=== PATIENT | female | born 1950 | race Caucasian/White ===

== ENCOUNTER 2018-06-14 10:57 | Outpatient (REF) | payer BC, SELFPAY ==
--- NOTE | 2018-06-14 09:24 | PAPFT_PTH ---
PATIENT: Joya Manrique LOC: [facility] U#:[id number] AGE/SX: 68/F ROOM: RE06/14/[address]: Asad Xie : 1950 BED: DIS: 06/14/2018 SPEC #: [id number] RECD: 06/14/18 12:53 STATUS: VISHNU REQ #: [id number] ASHER: 06/14/18 09:[address]: Asad Xie DEPT: [facility] Cytology RECD BY: Dorinda De La Vega Tissues: 1 - CX/ENDOCX FOR PAP SMEARS Procedures: PAP THIN PREP/UVM Screening HPV DNA PROBE Comments: [id number]
== END 2018-06-14 11:17 ==
LOC: NCHCN 10:57
PROVIDERS: PCP Family Medicine; Visit Provider Family Medicine
DX: Z12.4 Encounter for screening for malignant neoplasm of cervix (principal); Z11.51 Encounter for screening for human papillomavirus (HPV)
CPT/HCPCS: 88142; 87624

== ENCOUNTER 2018-06-27 00:34 | Outpatient (CLI) | payer BC, SELFPAY ==
--- NOTE | 2018-06-27 16:22 | DI.MAMMO_ITS ---
SYMPTOM/DIAGNOSIS: SCREENING, Z12.39 MAMMOGRAMS: Mammograms were interpreted according to the usual protocol including computer analysis with CAD system, tomosynthesis and C view imaging. Comparison is made with [id number]. The breasts are composed of heterogeneously dense fibroglandular tissue, breast density, Category C. No suspicious masses or suspicious microcalcifications are seen. There has been no significant change. IMPRESSION: Category 1C, negative mammogram. Yearly screening mammography is recommended. [facility] ASSESSMENT OF FINDINGS: Negative. Category 1. Patient will receive a letter notifying them of these results. Bi-RADS category C. The breasts are heterogeneously dense, which may obscure small masses.
== END 2018-06-27 00:54 ==
PROVIDERS: PCP Family Medicine; Visit Provider Family Medicine
DX: Z12.31 Encounter for screening mammogram for malignant neoplasm of breast (principal)
CPT/HCPCS: 77063; 77067

== ENCOUNTER 2018-08-15 15:28 | Outpatient (REF) | payer BC, SELFPAY ==
--- NOTE | 2018-08-15 | ENDO_PTH ---
PATIENT: Joya Manrique LOC: [facility] U#:[id number] AGE/SX: 68/F ROOM: RE08/15/[address]: Florecita Linares : 1950 BED: DIS: 08/15/2018 SPEC #: [id number] RECD: 08/15/18 18:07 STATUS: VISHNU REPatricia #: [id number] ASHER: 08/15/18 00:[address]: Florecita Linares DEPT: Surgical Specimen RECD BY: Dorinda De La Vega ENTERED: 08/15/18 18:08 SP TYPE: Endo OTHR DR: Asad Xie Tissues: 1 - ENDOCERVICAL BX/CURRETTE Procedures: GROSS AND MICRO LEVEL 4 Comments: [id number]
== END 2018-08-15 15:48 ==
LOC: LBN 15:28
PROVIDERS: PCP Family Medicine; Visit Provider Obstetrics & Gynecology Gynecology
DX: N87.9 Dysplasia of cervix uteri, unspecified (principal); B97.7 Papillomavirus as the cause of diseases classified elsewhere
CPT/HCPCS: 88305

== ENCOUNTER 2019-02-18 10:01 | Emergency (ER) | payer MEDICARE, BC, SELFPAY ==
[2019-02-18 10:03] VITALS: BP 161/74; PULSE 89; RESP 16; TEMP 36.4; O2SAT 100
[2019-02-18 10:27] LABS: Bilirubin Negative (Negative); Blood Moderate (Negative); Clarity Sl Cloudy (Clear); Glucose Negative (Negative); Ketones Negative (Negative); Leukocyte Esterase Moderate (Negative); Nitrite Negative (Negative); Specific Gravity <= 1.005 (1.005-1.025); Urobilinogen 0.2 EU/dL (Up TO 0.2)
[2019-02-18 10:37] LABS: Bacteria Few HPF (Negative); C & S Indicated? Yes; Casts Negative LPF (Negative); Crystals Negative HPF (Negative); Epithelial Cells Rare HPF (Negative); Mucus Negative (Negative); RBC 20-50 (0-2); WBC 20-50 HPF (0-5)
--- NOTE | 2019-02-18 11:11 | ED.GENADUL_ITS ---
Discharge Plan Disposition Patient Disposition: HOME Condition: Stable Discharge Details Chief Complaint: Urinary Clinical Impression: Acute UTI Primary Care Provider: Asad Xie ED Provider: Elmer Perez Home Meds and New Rx's Prescriptions: Continued ascorbic acid (vitamin C) 1,000 mg tablet extended release 1,000 mg PO Q12H RF: 0 selenium 200 mcg tablet 200 mcg PO DAILY RF: 0 cyanocobalamin (vitamin B-12) [Vitamin B-12] 2,000 mcg tablet extended release 2,000 mcg PO DAILY RF: 0 cranberry 400 MG capsule 0 cap PO DIRECTED RF: 0 omeprazole 20 MG capsule,delayed release(DR/EC) 20 mg PO DAILY RF: 0 naproxen 500 MG tablet 500 mg PO BID PRN PRNRF: 0 acidophilus-pectin, citrus [Acidophilus Probiotic] 1 EACH capsule 0 cap PO DIRECTED RF: 0 Discharge Instructions Instructions: Urinary Tract Infection in Women (ED) Additional Instructions: Please continue to stay well-hydrated and take antibiotics as prescribed and until fully completed. Return to the emergency department for new or worsening symptoms otherwise follow-up with your primary care provider as needed for reassessment Referrals: Asad Xie [Primary Care Provider] - Discharge Data Discharge Date/Time-TO BE ENTERED AT DEPARTURE: 02/18/19 11:26 Medical Decision Making Patient presenting to the emergency department for chief complaint of urinary tract infection symptoms. She states that this started this morning when she awoke. She states that she typically gets urinary tract infections after antibiotics and she states that she finished a 2-week course of doxycycline 3 to 4 days ago and then noticed symptoms today which is typical for her. She has been taking probiotics which seemed to help but has not taken them for the last couple days which she also feels is attributed to her UTI symptoms. Patient denies nausea vomiting fever chills flank pain or any other associated symptoms. Physical exam is unremarkable and shows no CVA tenderness, patient is nontoxic afebrile non-hypotensive alert and oriented and no worrisome findings on physical exam. Given this I feel patient is appropriate for outpatient antibiotic therapy and given that symptoms started today and no history of renal dysfunction patient placed upon Macrobid. Return precautions discussed. After discussion of diagnosis and plan of care patient has no further needs, questions, or concerns and states clear understanding to return to the emergency department for any worsening symptoms. Lab Data Lab results reviewed: Yes I reviewed the patient's lab results. HPI General Mode of arrival: ambulatory . Date/Time Provider Initiated Documentation: 02/18/19 11:06 . Limitations to Documentation: no limitations . Information obtained by: patient and RN notes reviewed . History of Present Illness 68 year old F presents to the emergency department with the chief complaint of UTI symptoms, described as mild and similar to prior episodes, with intensity rated at 5. Quality is described as aching, and is localized to the abdomen (Suprapubic). Patient started experiencing this hour(s) (3) No relieving factors improve symptom(s), Patient notes no other symptoms.. Patient did receive the following treatments prior to arrival, none Related Data Home Medications Medication Instructions Recorded Confirmed acidophilus-pectin, citrus 0 cap PO DIRECTED 06/07/13 02/18/19 [Acidophilus Probiotic] cranberry 0 cap PO DIRECTED 06/07/13 02/18/19 naproxen 500 mg PO BID PRN PRN 06/07/13 02/18/19 omeprazole 20 mg PO DAILY 06/07/13 02/18/19 ascorbic acid (vitamin C) 1,000 mg 1,000 mg PO Q12H 08/15/18 02/18/19 tablet,extended release cyanocobalamin (vitamin B-12) 2,000 mcg PO DAILY 08/15/18 02/18/19 2,000 mcg tablet,extended release selenium 200 mcg tablet 200 mcg PO DAILY 08/15/18 02/18/19 Allergies Allergy/AdvReac Type Severity Reaction Status Date / Time alendronate sodium AdvReac Intermediate N/V Unverified 02/18/19 10:07 [From Fosamax] Sulfa (Sulfonamide AdvReac Unverified 02/18/19 10:07 Antibiotics) General Stated Complaint: Urinary ANASTASIA: 4 Review of Systems Constitutional Denies body ache(s), Denies chills, Denies fever(s) and Denies malaise Cardiovascular Reports system reviewed and no additional complaints, except as docu Respiratory Reports system reviewed and no additional complaints, except as docu Gastrointestinal Denies abdominal pain, Denies nausea and Denies vomiting Genitourinary Reports as per HPI, Reports urinary frequency, Reports dysuria and Reports urinary urgency PFSH Medical History Cystocele (Resolved) GERD (gastroesophageal reflux disease) Hematuria History of tobacco use Prolapse of female genital organs Surgical History Biopsy of breast (~1995) Ligation of fallopian tube (~1982) Social History Smoking/Tobacco Use Status: Never Alcohol Intake: current Alcohol Intake frequency: 0-2 drinks per day Alcohol type: wine Drug use: Never Do you feel safe at home: Yes Do you feel safe in your relationship?: Yes Female Reproductive History Menstrual Menopause type: natural History History 2 Para Hx # Term Pregnancies 2 Multiple births Hx # Pregnancies Ectopic pregnancies AB induced Hx Number of Living Children AB spontaneous Exam Const General: cooperative and no acute distress Orientation: alert, awake and oriented x3 Resp Effort & Inspection: normal respiratory effort and able to speak in complete sentences Auscultation: clear to auscultation bilaterally Cardio Rate: regular rate Rhythm: regular rhythm Heart Sounds: S1 normal and S2 normal GI Palpation: nontender Back/Spine/Pelvis Back: no CVA tenderness Neuro General: alert, awake and oriented x3 Extrem General: normal capillary refill Course Vital Signs Temperature 36.4 C L 02/18/19 10:03 Pulse 89 02/18/19 10:03 Respiratory Rate 16 02/18/19 10:03 Blood Pressure 161/74 H 02/18/19 10:03 Pulse Oximetry 100 02/18/19 10:03 Temperature 36.4 C L 02/18/19 10:03 Temperature Source Skin 02/18/19 10:03 Pulse 89 02/18/19 10:03 Respiratory Rate 16 02/18/19 10:03 Respiratory Effort Short of Breath 02/18/19 10:06 Blood Pressure 161/74 H 02/18/19 10:03 Pulse Oximetry 100 02/18/19 10:03 Pain Level 5 02/18/19 10:22 Lab/Test Results Lab/Test Results: 02/18/19 10:10 Urine - Reflex from Ua Urine Culture - Pending Laboratory Tests Range/Units 02/18/19 10:10 Urine Color (Yellow) Yellow Urine Clarity (Clear) Sl cloudy Urine pH (5-8) 6.0 Ur Specific [place] (1.005-1.025) <= 1.005 Urine Protein (Negative) mg/dL Negative Urine Ketones (Negative) mg/dL Negative Urine Blood (Negative) Moderate H Urine Nitrite (Negative) Negative Urine Bilirubin (Negative) Negative Urine Urobilinogen (Up TO 0.2) EU/dL 0.2 Ur Leukocyte Esterase (Negative) Moderate H Urine RBC (0-2) 20-50 H Urine WBC (0-5) HPF 20-50 Ur Epithelial Cells (Negative) HPF Rare Urine Crystals (Negative) HPF Negative Urine Bacteria (Negative) HPF Few Urine Casts (Negative) LPF Negative Urine Mucus (Negative) Negative Ur Culture Indicated? Yes Urine Glucose (Negative) mg/dL Negative
== END 2019-02-18 11:26 | disposition home or self-care (01) ==
PROVIDERS: Emergency Provider Nurse Practitioner Family; PCP Family Medicine
DX: N39.0 Urinary tract infection, site not specified (principal); Z87.440 Personal history of urinary (tract) infections
CPT/HCPCS: 99283; 81003; 81015; 87086

== ENCOUNTER 2019-07-26 10:15 | Outpatient (REF) | payer MEDICARE, BC, SELFPAY ==
--- NOTE | 2019-07-26 10:00 | PAPFT_PTH ---
PATIENT: Joya Manrique LOC: [facility]#:[id number] AGE/SX: 69/F ROOM: RE07/26/[address]: Asad Xie : 1950 BED: DIS: 07/26/2019 SPEC #: [id number] RECD: 07/27/19 12:34 STATUS: VISHNU REQ #: [id number] ASHER: 07/26/19 10:[address]: Jyoti Araiza DEPT: [facility] Cytology RECD BY: Dorinda De La Vega ENTERED: 07/27/19 12:35 SP TYPE: PAPFT OTHR DR: Asad Xie Tissues: 1 - CX/ENDOCX FOR PAP SMEARS Procedures: PAP THIN PREP/UVM Screening HPV DNA PROBE Comments: [id number]
== END 2019-07-26 10:35 ==
LOC: NCHCN 10:15
PROVIDERS: PCP Family Medicine; Visit Provider Family Medicine
DX: Z12.4 Encounter for screening for malignant neoplasm of cervix (principal)
CPT/HCPCS: 88142; 87624

== ENCOUNTER 2019-09-19 10:17 | Outpatient (REF) | payer MEDICARE, BC, SELFPAY ==
--- NOTE | 2019-09-19 09:30 | ENDO_PTH ---
PATIENT: Joya Manrique LOC: [facility] U#:[id number] AGE/SX: 69/F ROOM: RE09/19/[address]: Florecita Linares : 1950 BED: DIS: 09/19/2019 SPEC #: [id number] RECD: 09/19/19 12:41 STATUS: VISHNU REQ #: [id number] ASHER: 09/19/19 09:[address]: Florecita Linares DEPT: Surgical Specimen RECD BY: Dorinda De La Vega ENTERED: 09/19/19 12:42 SP TYPE: Endo OTHR DR: Asad Xie Tissues: 1 - ENDOCERVICAL BX/CURRETTE Procedures: GROSS AND MICRO LEVEL 4 Comments: [id number]
== END 2019-09-19 10:37 ==
LOC: LBN 10:17
PROVIDERS: PCP Family Medicine; Visit Provider Obstetrics & Gynecology Gynecology
DX: N87.9 Dysplasia of cervix uteri, unspecified (principal); N88.8 Other specified noninflammatory disorders of cervix uteri; R87.810 Cervical high risk human papillomavirus (HPV) DNA test positive
CPT/HCPCS: 88305

== ENCOUNTER 2020-01-25 14:38 | Outpatient (REF) | payer MEDICARE, BC, SELFPAY ==
[2020-01-31 01:54] LABS: SARS-CoV-2 RNA Undetected (Undetected); SARS-CoV-2 Specimen Source Nasopharynx
== END 2020-01-25 14:58 ==
LOC: NCHCN 14:38
PROVIDERS: PCP Family Medicine; Visit Provider Nurse Practitioner Family
DX: Z03.818 Encounter for observation for suspected exposure to other biological agents ruled out (principal)
CPT/HCPCS: U0003

== ENCOUNTER 2020-07-29 17:49 | Outpatient (REF) | payer MEDICARE, BC, SELFPAY ==
--- NOTE | 2020-07-29 09:45 | PAPFT_PTH ---
PATIENT: Joya Manrique LOC: [facility] U#:[id number] AGE/SX: 70/F ROOM: RE07/29/[address]: Asad Xie : 1950 BED: DIS: 07/29/2020 SPEC #: [id number] RECD: 07/29/20 18:19 STATUS: VISHNU REQ #: [id number] ASHER: 07/29/20 09:[address]: Asad Xie DEPT: [facility] Cytology RECD BY: Dorinda De La Vega Tissues: 1 - CX/ENDOCX FOR PAP SMEARS Procedures: PAP THIN PREP/UVM Screening HPV DNA PROBE Comments: [id number]
[2020-07-29 14:23] LABS: Calculated LDL 144 mg/dL (<100); Cholesterol 232 mg/dL (<200); Glucose 105 mg/dL (74-106); HDL Cholesterol 73 mg/dL (40-60); Triglyceride 78 mg/dL (<150)
== END 2020-07-29 18:09 ==
LOC: NCHCN 17:49
PROVIDERS: PCP Family Medicine; Visit Provider Family Medicine
DX: Z00.00 Encounter for general adult medical examination without abnormal findings (principal); Z12.4 Encounter for screening for malignant neoplasm of cervix; Z11.51 Encounter for screening for human papillomavirus (HPV); R87.810 Cervical high risk human papillomavirus (HPV) DNA test positive; Z13.1 Encounter for screening for diabetes mellitus; Z13.220 Encounter for screening for lipoid disorders
CPT/HCPCS: 80061; 82947; 88142; 87624

== ENCOUNTER 2020-07-31 01:03 | Outpatient (CLI) | payer MEDICARE, BC, SELFPAY ==
--- NOTE | 2020-07-31 15:28 | DI.MAMMO_ITS ---
EXAM: MG MAMMO SCREENING CLINICAL HISTORY: SCREENING, [facility]LY [facility], LAT[facility],Z00.00. TECHNIQUE: Bilateral full field digital CC and MLO mammographic images were obtained with 3D tomosyn thesis and utilizing computer aided detection (CAD). COMPARISON: Prior mammograms dating back to 2010, the most recent being June 2018. FINDINGS: Fibroglandular tissue is moderately dense, this decreasing sensitivity mammogram for finding hidden u nderlying lesions. Asymmetric tissue medially in left breast is unchanged from 2011. There are no new obvious spiculated masses nor malignant-appearing microcalcification groups in either breast. There is no significant architectural distortion nor skin thickening-retraction. IMPRESSION: Dense bilateral fibroglandular tissue. No obvious radiographic evidence of malignancy. BI-RADS Category 1 - Negative Breast Density - Category C - Heterogeneously dense Breast density Category C or D implies that the patient has dense breast tissue. Dense breast tissue can make it harder to find cancer on a mammogram. Dense breast tissue is also associated with an incr eased risk of breast cancer. This information about the result of the mammogram report was provided to the patient to raise their awareness. Use this report when you speak with the patient about their risks for breast cancer, which includes their family history. At that time, you may recommend additional screening tests (Ultrasoun d or MRI) as these tests may add significant information. A negative radiographic report should not delay biopsy if a dominant or clinically suspicious mass is present. Up to ten percent of cancers are not identified on mammography. A negative report may reinforce clinical impression. Adenosis and dense breasts may obscure an underlying neoplasm. False positive reports average 6 to 10%. Patient will receive a letter notifying them of these results.
== END 2020-07-31 01:23 ==
PROVIDERS: PCP Family Medicine; Visit Provider Family Medicine
DX: Z00.00 Encounter for general adult medical examination without abnormal findings (principal); Z12.31 Encounter for screening mammogram for malignant neoplasm of breast; N64.89 Other specified disorders of breast
CPT/HCPCS: 77063; 77067

== ENCOUNTER 2021-03-15 14:42 | Outpatient (REF) | payer MEDICARE, BC, SELFPAY | END 2021-03-15 14:43 | disposition home or self-care (01) | LOC: LBN 14:42 | PROVIDERS: PCP Family Medicine; Visit Provider Nurse Practitioner Family | DX: R35.0 Frequency of micturition (principal) | CPT/HCPCS: 87077; 87086; 87186 ==

== ENCOUNTER 2021-05-31 13:22 | Outpatient (REF) | payer MEDICARE, BC, SELFPAY | END 2021-05-31 13:23 | disposition home or self-care (01) | LOC: LBN 13:22 | PROVIDERS: PCP Family Medicine; Visit Provider Family Medicine | DX: R35.0 Frequency of micturition (principal) | CPT/HCPCS: 87077; 87086; 87186 ==

== ENCOUNTER 2021-08-13 13:35 | Outpatient (REF) | payer MEDICARE, BC, SELFPAY ==
--- NOTE | 2021-08-13 12:00 | PAPFT_PTH ---
PATIENT: Joya Manrique LOC: [facility]#:[id number] AGE/SX: 71/F ROOM: RE08/13/[address]: Asad Xie : 1950 BED: DIS: 08/13/2021 SPEC #: [id number] RECD: 08/13/21 17:31 STATUS: VISHNU REPatricia #: [id number] ASHER: 08/13/21 12:[address]: Asad Xie DEPT: [facility] Cytology RECD BY: Dorinda De La Vega Tissues: 1 - CX/ENDOCX FOR PAP SMEARS Procedures: PAP THIN PREP/UVM Screening HPV DNA PROBE Comments: [id number]
== END 2021-08-13 13:36 | disposition home or self-care (01) ==
LOC: NCHCN 13:35
PROVIDERS: PCP Family Medicine; Visit Provider Family Medicine
DX: Z12.4 Encounter for screening for malignant neoplasm of cervix (principal); Z11.51 Encounter for screening for human papillomavirus (HPV); Z01.419 Encounter for gynecological examination (general) (routine) without abnormal findings
CPT/HCPCS: 88142; 87624

== ENCOUNTER 2021-10-08 10:47 | Outpatient (REF) | payer MEDICARE, BC, SELFPAY ==
[2021-10-08 14:46] LABS: Abs Immature Grans 0.01 10^3/uL (0.0-0.06); Absolute Basophil Count 0.02 10^3/uL (0.0-0.2); Absolute Eosinophil Count 0.03 10^3/uL (0.0-0.7); Absolute Lymphocyte Count 1.13 10^3/uL (1.2-3.4); Absolute Monocyte Count 0.27 10^3/uL (0.1-0.8); Absolute Neutrophil Count 4.59 10^3/uL (1.2-6.7); Basophils % 0.3; Eosinophils % 0.5; HCT 41.4 % (36.0-46.0); HGB 13.3 g/dL (11.2-15.7); Immature Grans % 0.2; Lymphocytes % 18.7; MCH 31.2 pg (27.0-33.0); MCHC 32.1 % (32.0-36.0); MCV 97.2 fL (80-95); MPV 10.2 fL (8.0-11.0); Monocytes % 4.5; Neutrophils % 75.8; Nucleated RBC 0 %; Platelet Count 259 10^3/uL (130-400); RBC 4.26 10^6/uL (3.93-5.22); RDW 12.5 % (11.7-14.6); RDW-SD 44.8 fL; WBC 6.05 10^3/uL (4.4-10.8)
[2021-10-08 15:16] LABS: BUN 21 mg/dL (7-18); CREATININE 0.7 mg/dL (0.55-1.02); Calcium 9.5 mg/dL (8.5-10.1); Chloride 105 mmol/L (98-107); Glucose 115 mg/dL (74-106); Potassium 4.5 mmol/L (3.5-5.1); Sodium 141 mmol/L (136-145)
== END 2021-10-08 10:48 | disposition home or self-care (01) ==
LOC: NCHCN 10:47
PROVIDERS: PCP Family Medicine; Visit Provider Physician Assistant Medical
DX: R42 Dizziness and giddiness (principal)
CPT/HCPCS: 80048; 85025

== ENCOUNTER 2022-11-16 10:09 | Day surgery (SDC) | payer MEDICARE, BC, SELFPAY ==
[2022-11-16 10:44] VITALS: BP 124/70; PULSE 72; RESP 18; TEMP 36.4; O2SAT 99
[2022-11-16] MEDS: Tropicam./Phenyleph. (1/2.5%) 5 ML BTL OS ×3 (10:54→11:06)
--- NOTE | 2022-11-16 10:58 | W.ANESPRE ---
General Info Date of Service Date Performed: 11/16/22 Height: 5 ft 4 in Weight: 69.9 kg Body Mass Index (BMI): 26.4 Surgical Procedure: Operation Date: 11/16/22 12:10 Proposed Procedure Side Surgeon p Cataract Extraction with IOL Implant Left Cristian Gary MD Meds Allergies and Home Medications Allergies Allergy/AdvReac Type Severity Reaction Status Date / Time alendronate sodium AdvReac Intermediate N/V Unverified 11/16/22 10:38 [From Fosamax] Sulfa (Sulfonamide AdvReac Unverified 11/13/22 11:30 Antibiotics) Home Medication Medication Instructions Recorded acidophilus 100 million 0 cap PO DIRECTED 06/07/13 cell-pectin, citrus 10 mg capsule (Acidophilus Probiotic) cranberry 400 mg capsule 1 cap PO DIRECTED 06/07/13 naproxen 500 mg tablet 500 mg PO BID PRN PRN 06/07/13 omeprazole 20 mg capsule,delayed 20 mg PO DAILY 06/07/13 release ascorbic acid (vitamin C) 1,000 mg 1,000 mg PO Q12H 08/15/18 tablet,extended release cyanocobalamin (vitamin B-12) 2,000 mcg PO DAILY 08/15/18 2,000 mcg tablet,extended release (Vitamin B-12 ER) selenium 200 mcg tablet 200 mcg PO DAILY 08/15/18 calcium 600 mg capsule 600 mg PO DAILY 11/13/22 Current Visit Medications: Current Medications Generic Name Dose Route Start Last Admin Trade Name Freq PRN Reason Stop Dose Admin Acetaminophen 1,000 mg 11/16/22 06:00 Acetaminophen 500 Mg Tab PO Q4H PRN PRN Miscellaneous Medication 0 ml 11/16/22 06:00 11/16/22 10:54 Tropicam./Phenyleph. (1/2.5%) 5 Ml Btl OS 1 drp DIRECTED EMILEE Administration Miscellaneous Medication 0 ml 11/16/22 06:00 Prednisolone 1%, Moxifloxacin 0.5%, Nepafenac 0.1% 5ml Btl OS DIRECTED EMILEE Tetracaine HCl 0 ml 11/16/22 06:00 Tetracaine 0.5% 4 Ml Btl OS DIRECTED EMILEE PFSH Active Problems Active Problems: Problem Status Onset Code Posterior subcapsular age-related cataract of left eye H25.042 Nuclear age-related cataract, left eye H25.12 History of colposcopy ~09/19/19 Z98.890 Cystocele Cervical high risk HPV (human papillomavirus) test positive ~06/15/18 R87.810 Frequent UTI 10/01/17 N39.0 Gastroesophageal reflux disease without esophagitis 10/01/17 K21.9 Urethral caruncle 10/01/17 N36.2 Medical History Medical History GERD (gastroesophageal reflux disease) Hematuria History of tobacco use Prolapse of female genital organs Surgical History Surgical History Biopsy of breast (~1995) Benign History of anterior colporrhaphy 2018. [facility] Ligation of fallopian tube (~1982) [facility] Tobacco Smoking/Tobacco Use Status: Former Tobacco Use Alcohol Alcohol Intake: current Alcohol intake frequency: 0-2 drinks per day Alcohol type: wine and hard liquor Substance Use Substance use: Never Details: alcohol: t-1 , one glass wine Prental History History 2 Para Hx # Term Pregnancies 2 Multiple births Hx # Pregnancies Ectopic pregnancies AB induced Hx Number of Living Children AB spontaneous Vital Signs and Lab Results Vital Signs Most Recent Vital Signs in EMR: Most Recent Vital Signs Temp Pulse Resp BP Pulse Ox 36.4 C L 72 18 124/70 99 11/16/22 10:44 11/16/22 10:44 11/16/22 10:44 11/16/22 10:44 11/16/22 10:44 Lab Results Blood Type / Crossmatch: No Data to Display Complete Blood Count: No Data to Display Complete Metabolic Panel: No Data to Display Liver Function Panel: No Data to Display Coagulation Panel: No Data to Display Cardiac Panel: No Data to Display Arterial Blood Gas: No Data to Display Venous Blood Gas: No Data to Display Pancreas Panel: No Data to Display Thyroid Panel: No Data to Display Infectious Disease: No Data to Display Blood Cultures: No Data to Display Toxicology Panel: No Data to Display Anesthesia Assessment and Plan Anesthesia History Personal History: No History of Anesthesia Complications Family History: No Family History of Anesthesia Complications Exercise Tolerance Exercise Tolerance: Metabolic Equivalents>4 Pertinent Negatives Pertinent Negatives: No Symptoms of GERD (med controlled. ) Cardiac & Pulmonary Exam Cardiac Exam: Normal S1/S2 Heart Sounds Pulmonary Exam: Clear Bilateral Breath Sounds Implantable Cardiac Device Does patient have a Pacemaker or an ICD?: No Airway Exam Known Difficult Airway: No Mallampati Class: 2 Mouth Opening: Normal (> 3cm) Thyromental Distance: Greater than 3 cm Neck Range of Motion: Full ROM Neck Circumference: Normal Teeth Condition: Normal Dentition ASA Classification ASA Score: ASA 2 Emergency Case?: No NPO Status NPO Status: NPO Clears >2 hours, Solids >8 hours Anesthesia Plan Resuscitation Status: Full Code Anesthesia Technique: MAC Anesthesia Airway Planned: Natural Airway Monitors Used: Standard Monitors
[2022-11-16 11:02] VITALS: BMI 26.4
[2022-11-16] MEDS: Tetracaine 0.5% 4 ML BTL OS (11:52)
[2022-11-16] MEDS: Povidone-Iodine Ophth 30 ML BTL (11:53)
[2022-11-16] MEDS: Lidocaine 1% Pres-Free 5 ML VIAL (12:00)
[2022-11-16] MEDS: Duovisc Viscoelastic System EACH 1 EACH (12:00)
[2022-11-16] MEDS: Phenylephrine/Lidocaine (15/10) MG/ML 1 ML VIAL (12:00)
[2022-11-16 12:15] VITALS: BP 105/77; PULSE 68; RESP 18; TEMP 36.8; O2SAT 98
--- NOTE | 2022-11-16 12:15 | PDOC.DSDIS_ITS ---
Date of service: 11/16/22 Time of Service: 12:15 Discharge Plan Disposition Patient Disposition: Home Discharge Details Attending Provider: Cristian Gary Primary Care Provider: Asad Xie [place] Meds and New Rx's Prescriptions: No Action ascorbic acid (vitamin C) 1,000 mg tablet extended release 1,000 mg PO Q12H selenium 200 mcg tablet 200 mcg PO DAILY cyanocobalamin (vitamin B-12) [Vitamin B-12] 2,000 mcg tablet extended release 2,000 mcg PO DAILY cranberry 400 MG capsule 1 cap PO DIRECTED omeprazole 20 MG capsule,delayed release(DR/EC) 20 mg PO DAILY naproxen 500 MG tablet 500 mg PO BID PRN PRN acidophilus-pectin, citrus [Acidophilus Probiotic] 1 EACH capsule 0 cap PO DIRECTED calcium 600 mg Capsule 600 mg PO DAILY Discharge Instructions Stand Alone Forms: Post-op Topical Cataract, Andriy Ridleyey (DSU) Discharge Orders Discharge Orders: Discharge Order (Routine); Ordered 11/16/22 Ordered By: Cristian Gary DS: Diagnosis Discharge Diagnosis (1) Posterior subcapsular age-related cataract of left eye: Status: Resolved (2) Nuclear age-related cataract, left eye: Status: Resolved
--- NOTE | 2022-11-16 12:16 | W.PM.OP ---
Date of service: 11/16/22 Time of Service: 12:16 Operative Note Operative Note DATE OF PROCEDURE: 11/16/22 PRE-OP DIAGNOSIS: Nuclear/posterior subcapsular cataract, left eye POST-OP DIAGNOSIS: same PROCEDURE: Cataract extraction using phacoemulsification with intraocular lens implant, left eye SURGEON: Cristian Gary ANESTHESIA TYPE: Local By Surgeon and MAC Refer to Anesthesia Record PATHOLOGY: none sent COMPLICATIONS: None Patient was transported to: same day Patient's condition: stable Implants: Colby and Colby Tecnis Eyhance [id number] Indications: Progressive decreased vision due to cataract, left eye Procedure Description: CATARACT SURGERY OPERATIVE REPORT PREOPERATIVE DIAGNOSIS: 1. Nuclear/posterior subcapsular cataract, left eye POSTOPERATIVE DIAGNOSIS: Same OPERATION: 1. Cataract extraction using phacoemulsification with posterior chamber intraocular lens implant, left eye. IOL: IOL Charter Representative/Model: Colby & Colby Tecnis Eyhance DIB00 IOL Power: + 20.5 diopters IOL Serial Number: [id number] Optic Diameter: 6.0 mm Haptic/Overall Diameter: 13.0 mm PHACO INFO: [facility] System with OZil and Active Fluidics Cumulative Dispersed Energy (CDE): 8.92 seconds SURGEON: Cristian Gary MD, ALEXI ANESTHESIA: Monitored A [facility] (MAC), with local sub-tenon's anesthetic infiltration COMPLICATIONS: None SPECIMENS: None INDICATIONS FOR PROCEDURE: The patient is a 72-year-old lady with history of diminished visual acuity in her left eye secondary to the development of nuclear/posterior subcapsular cataract. She is significantly symptomatic that she desires cataract surgery and attempt to improve and maximize her vision. She has a history of myopia and desires to remain myopic postoperatively. Postoperative refractive target is -2.75 diopters. See office notes for detailed information. PROCEDURE: The correct surgical eye was identified and marked as the left eye and the pupil was dilated in the preoperative area using mydriatics and cycloplegics. The dilated pupil size was 7.0 mm. Oral sedation was administered in the form of an Imprimis MKO Melt (midazolam 3mg/ketamine 25mg/ondansetron 2mg). The patient was brought to the operating room where cardiopulmonary monitoring was instituted and surgical time-out was performed, confirming the correct operative eye and IOL power. Topical anesthesia was administered and ophthalmic povidone-iodine 5% was instilled into the conjunctival fornices. The sabina-ocular area was prepped with Betadine 10% solution and draped in the usual sterile fashion for intraocular surgery, including an aperture drape. A Tegaderm transparent film dressing was cut in half and used to cover the lashes and lid margins. Care was taken to sequester the lashes and lid margins under the Tegaderm dressing. A lid speculum was placed between the lids of the operative eye and the Osbaldo LuxOR Revalia operating microscope was maneuvered into position. Chely scissors were then used to make a conjunctival buttonhole approximately 6mm posterior to the limbus in the inferonasal quadrant. Blunt dissection was carried out to expose bare sclera, and a blunt-tipped sub-tenon?s anesthesia cannula was introduced and passed posteriorly along the globe where non-preserved plain lidocaine was injected into posterior sub-Tenon?s space. A sideport knife was used to make a paracentesis port superiorly/superiortemporally. Intraocular phenylephrine/lidocaine was injected int the anterior chamber.. The anterior chamber was filled with viscoelastic. A keratome knife was used to construct a 2-plane near-clear corneal tunnel extending 2.0mm into clear cornea temporally. A flap was raised on the anterior capsule and capsulorhexis forceps were used to complete a continuous curvilinear capsulorhexis of 5.5 mm. Balanced salt solution was then used to perform cortical cleaving hydrodissection and nuclear hydrodelineation until the lens could be freely rotated within the capsular bag. The lens nucleus was then disassembled and removed within the capsular bag and iris plane using phacoemulsification. Residual cortical material was removed using the 45-degree angled silicone I/A tip with 0.3mm port. The posterior capsule was carefully polished to remove as much residual lens epithelial cells as safely possible. The capsular bag was then inflated and the anterior chamber deepened with viscoelastic. The lens implant described above was inserted into the capsular bag using the Colby and Colby Simplicity pre-loaded injector. . A Kuglen hook was used to dial the IOL into position. Residual viscoelastic was then removed first from posterior to the IOL, then from the anterior chamber using the I/A handpiece. The lens implant was noted to center nicely within the capsular bag. The incisions were stromally hydrated, and the anterior chamber was reformed using BSS. Then 0.5cc of moxifloxacin 1.0mg/ml were injected into the capsular bag and anterior chamber. The incisions were checked with a Weck spear and found to be secure. Several drops of ophthalmic povidone-iodine 5% were then applied to the eye followed by two drops of Imprimis combination prednisolone/moxifloxacin/nepafenac solution. The drapes were removed and a clear plastic protective eye shield was placed over the eye. The patient was then returned to [facility] Surgery in stable condition.
--- NOTE | 2022-11-16 12:35 | W.ANESPOSTOP ---
Postoperative Evaluation Date, Time and Location Date Performed: 11/16/22 Time Performed: 11:49 Patient Location: Day Surgery Unit Vital Signs Most Recent Imported Vital Signs: Most Recent Vital Signs Temp Pulse Resp BP Pulse Ox 36.8 C 68 18 105/77 98 11/16/22 12:15 11/16/22 12:15 11/16/22 12:15 11/16/22 12:15 11/16/22 12:15 Pain Score Most Recent Pain Score: Most Recent Pain Score Pain Level 0 11/16/22 12:15 Assessment Mental Status: Awake (Alert & Oriented to Patient Baseline) Airway and Respiratory Function: Patent airway with normal (patient baseline) respiratory exam Cardiovascular Function: Hemodynamically Stable Hydration Status: Adequately Hydrated Nausea & Vomiting: No Nausea or Vomiting Pain: Pt. Denies Any Pain Peripheral Nerve Block: Patient did not receive a nerve block
[2022-11-16 12:45] VITALS: BP 124/79; PULSE 73; RESP 16; TEMP 36.6; O2SAT 97
== END 2022-11-16 12:55 | disposition home or self-care (01) ==
LOC: SUR 10:10
PROVIDERS: PCP Family Medicine; Visit Provider Ophthalmology
PROC: (CPT 66984; principal; 2022-11-16 12:00)
DX: H25.042 Posterior subcapsular polar age-related cataract, left eye (principal); H25.12 Age-related nuclear cataract, left eye; K21.9 Gastro-esophageal reflux disease without esophagitis
CPT/HCPCS: 66984; V2632

== ENCOUNTER 2022-11-30 06:14 | Day surgery (SDC) | payer MEDICARE, BC, SELFPAY ==
[2022-11-30 06:16] VITALS: BP 127/76; PULSE 77; RESP 16; TEMP 37; O2SAT 100
[2022-11-30] MEDS: Tropicam./Phenyleph. (1/2.5%) 5 ML BTL OD ×3 (06:37→06:47)
--- NOTE | 2022-11-30 06:53 | W.ANESPRE ---
General Info Date of Service Date Performed: 11/30/22 Height: 5 ft 4 in Weight: 70 kg Body Mass Index (BMI): 26.4 Surgical Procedure: Operation Date: 11/30/22 07:40 Proposed Procedure Side Surgeon p Cataract Extraction with IOL Implant Right Cristian Gary MD Meds Allergies and Home Medications Allergies Allergy/AdvReac Type Severity Reaction Status Date / Time alendronate sodium AdvReac Intermediate N/V Unverified 11/30/22 06:20 [From Fosamax] Sulfa (Sulfonamide AdvReac Unverified 11/30/22 06:20 Antibiotics) Home Medication Medication Instructions Recorded acidophilus 100 million 0 cap PO DIRECTED 06/07/13 cell-pectin, citrus 10 mg capsule (Acidophilus Probiotic) cranberry 400 mg capsule 1 cap PO DIRECTED 06/07/13 naproxen 500 mg tablet 500 mg PO BID PRN PRN 06/07/13 omeprazole 20 mg capsule,delayed 20 mg PO DAILY 06/07/13 release ascorbic acid (vitamin C) 1,000 mg 1,000 mg PO Q12H 08/15/18 tablet,extended release cyanocobalamin (vitamin B-12) 2,000 mcg PO DAILY 08/15/18 2,000 mcg tablet,extended release (Vitamin B-12 ER) selenium 200 mcg tablet 200 mcg PO DAILY 08/15/18 calcium 600 mg capsule 600 mg PO DAILY 11/13/22 Current Visit Medications: Current Medications Generic Name Dose Route Start Last Admin Trade Name Freq PRN Reason Stop Dose Admin Acetaminophen 1,000 mg 11/30/22 06:00 Acetaminophen 500 Mg Tab PO 12/30/22 05:59 Q4H PRN PRN Balanced Salt Solution 500 ml 11/30/22 06:00 Balanced Salt Soln.-Plus 500 Ml Bag OP 12/30/22 05:59 DIRECTED EMILEE Miscellaneous Medication 0 ml 11/30/22 06:00 Prednisolone 1%, Moxifloxacin 0.5%, Nepafenac 0.1% 5ml Btl OD 12/30/22 05:59 DIRECTED EMILEE Miscellaneous Medication 0 ml 11/30/22 06:00 11/30/22 06:47 Tropicam./Phenyleph. (1/2.5%) 5 Ml Btl OD 12/30/22 05:59 1 drp DIRECTED EMILEE Administration Tetracaine HCl 0 ml 11/30/22 06:00 Tetracaine 0.5% 4 Ml Btl OD 12/30/22 05:59 DIRECTED EMILEE PFSH Active Problems Active Problems: Problem Status Onset Code Posterior subcapsular age-related cataract, 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 Nuclear age-related cataract, right eye H25.11 Urethral caruncle 10/01/17 N36.2 Gastroesophageal reflux disease without esophagitis 10/01/17 K21.9 Frequent UTI 10/01/17 N39.0 Cervical high risk HPV (human papillomavirus) test positive ~06/15/18 R87.810 Cystocele History of colposcopy ~09/19/19 Z98.890 Nuclear age-related cataract, left eye H25.12 Posterior subcapsular age-related cataract of left eye H25.042 Medical History Medical History GERD (gastroesophageal reflux disease) Hematuria History of tobacco use Prolapse of female genital organs Surgical History Surgical History Biopsy of breast (~1995) Benign H/O cataract removal with insertion of prosthetic lens History of anterior colporrhaphy 2018. [facility] Ligation of fallopian tube (~1982) [facility] Tobacco Smoking/Tobacco Use Status: Former Tobacco Use Alcohol Alcohol Intake: current Alcohol intake frequency: 0-2 drinks per day Alcohol type: wine and hard liquor Substance Use Substance use: Never Substance use type: does not use Details: alcohol: t-1 , one glass wine, one beer Prental History History 2 Para Hx # Term Pregnancies 2 Multiple births Hx # Pregnancies Ectopic pregnancies AB induced Hx Number of Living Children AB spontaneous Vital Signs and Lab Results Vital Signs Most Recent Vital Signs in EMR: Most Recent Vital Signs Temp Pulse Resp BP Pulse Ox 37.0 C 77 16 127/76 100 11/30/22 06:16 11/30/22 06:16 11/30/22 06:16 11/30/22 06:16 11/30/22 06:16 Lab Results Blood Type / Crossmatch: No Data to Display Complete Blood Count: No Data to Display Complete Metabolic Panel: No Data to Display Liver Function Panel: No Data to Display Coagulation Panel: No Data to Display Cardiac Panel: No Data to Display Arterial Blood Gas: No Data to Display Venous Blood Gas: No Data to Display Pancreas Panel: No Data to Display Thyroid Panel: No Data to Display Infectious Disease: No Data to Display Blood Cultures: No Data to Display Toxicology Panel: No Data to Display Anesthesia Assessment and Plan Anesthesia History Personal History: No History of Anesthesia Complications Family History: No Family History of Anesthesia Complications Exercise Tolerance Exercise Tolerance: Metabolic Equivalents>4 Pertinent Negatives Pertinent Negatives: No Symptoms of GERD Cardiac & Pulmonary Exam Cardiac Exam: Normal S1/S2 Heart Sounds Pulmonary Exam: Clear Bilateral Breath Sounds Implantable Cardiac Device Does patient have a Pacemaker or an ICD?: No Airway Exam Known Difficult Airway: No Mallampati Class: 2 Mouth Opening: Normal (> 3cm) Thyromental Distance: Greater than 3 cm Neck Range of Motion: Full ROM Neck Circumference: Normal Teeth Condition: Normal Dentition ASA Classification ASA Score: ASA 2 Emergency Case?: No NPO Status NPO Status: NPO Clears >2 hours, Solids >8 hours Anesthesia Plan Resuscitation Status: Full Code Anesthesia Technique: MAC Anesthesia Airway Planned: Natural Airway Monitors Used: Standard Monitors
[2022-11-30 06:54] VITALS: BMI 26.4
[2022-11-30] MEDS: Midazolam/Ketamine/Ondansetron (3/25/2MG) 1 TAB 1 EACH SL (07:00)
[2022-11-30] MEDS: Tetracaine 0.5% 4 ML BTL OD (07:20)
[2022-11-30] MEDS: Balanced Salt Soln.-PLUS 500 ML BAG OP (07:20)
[2022-11-30] MEDS: Povidone-Iodine Ophth 30 ML BTL (07:21)
[2022-11-30] MEDS: Duovisc Viscoelastic System EACH 1 EACH (07:26)
[2022-11-30] MEDS: Phenylephrine/Lidocaine (15/10) MG/ML 1 ML VIAL (07:27)
[2022-11-30] MEDS: Lidocaine 1% Pres-Free 5 ML VIAL (07:27)
[2022-11-30 07:45] VITALS: BP 114/66; PULSE 73; RESP 16; TEMP 36.4; O2SAT 99
--- NOTE | 2022-11-30 07:46 | W.PM.DSUDISC ---
Date of service: 11/30/22 Time of Service: 07:46 Discharge Plan Disposition Patient Disposition: Home Discharge Details Attending Provider: Cristian Gary Primary Care Provider: Asad Xie Hoffman Meds and New Rx's Prescriptions: No Action ascorbic acid (vitamin C) 1,000 mg tablet extended release 1,000 mg PO Q12H selenium 200 mcg tablet 200 mcg PO DAILY cyanocobalamin (vitamin B-12) [Vitamin B-12] 2,000 mcg tablet extended release 2,000 mcg PO DAILY cranberry 400 MG capsule 1 cap PO DIRECTED omeprazole 20 MG capsule,delayed release(DR/EC) 20 mg PO DAILY naproxen 500 MG tablet 500 mg PO BID PRN PRN acidophilus-pectin, citrus [Acidophilus Probiotic] 1 EACH capsule 0 cap PO DIRECTED calcium 600 mg Capsule 600 mg PO DAILY Discharge Orders Discharge Orders: Discharge Order (Routine); Ordered 11/30/22 Ordered By: Cristian Gary DS: Diagnosis Discharge Diagnosis (1) Posterior subcapsular age-related cataract, right eye: Status: Resolved (2) Nuclear age-related cataract, right eye: Status: Resolved
--- NOTE | 2022-11-30 07:47 | ROE_ITS ---
Date of service: 11/30/22 Time of Service: 07:47 Operative Note Operative Note DATE OF PROCEDURE: 11/30/22 PRE-OP DIAGNOSIS: Nuclear/posterior subcapsular cataract, right eye POST-OP DIAGNOSIS: same PROCEDURE: Cataract extraction using phacoemulsification with intraocular lens implant, right eye SURGEON: Cristian Gary ANESTHESIA TYPE: Local By Surgeon and MAC Refer to Anesthesia Record ESTIMATED BLOOD LOSS: 0 PATHOLOGY: none sent COMPLICATIONS: None Patient was transported to: same day Patient's condition: stable Implants: Colby & Colby Tecnis Eyhance [id number] Indications: Progressive visual loss due to cataract, right eye Procedure Description: CATARACT SURGERY OPERATIVE REPORT PREOPERATIVE DIAGNOSIS: 1. Nuclear/posterior subcapsular cataract, right eye POSTOPERATIVE DIAGNOSIS: Same OPERATION: 1. Cataract extraction using phacoemulsification with posterior chamber intraocular lens implant, right eye. IOL: IOL Analytics Specialist/Model: Colby [employer] Cobly Tecnis Eyhance DIB00 IOL Power: + 20.0 diopters IOL Serial Number: [id number] Optic Diameter: 6.0mm Haptic/Overall Diameter: 13.0mm PHACO INFO: Osbaldo [employer]ion Vision System with OZil and Active Fluidics Cumulative Dispersed Energy (CDE): 6.94 seconds SURGEON: Cristian Gary MD, ALEXI ANESTHESIA: Monitored Anesthesia Care (MAC), with local sub-tenon's anesthetic infiltration COMPLICATIONS: None SPECIMENS: None INDICATIONS FOR PROCEDURE: The patient is a 72-year-old lady with history of diminished visual acuity in her right eye secondary to the development of nuclear/posterior subcapsular cataract. She has already undergone cataract surgery in the left eye and is doing well postoperatively. She now presents for cataract surgery in the right eye. She has a history of myopia and desires to remain myopic postoperatively. Postoperative refractive target is -2.75 diopters. See office notes for detailed information. PROCEDURE: The correct surgical eye was identified and marked as the right eye and the pupil was dilated in the preoperative area using mydriatics and cycloplegics. The dilated pupil size was 7.0 mm. Oral sedation was administered in the form of an Imprimis MKO Melt (midazolam 3mg/ketamine 25mg/ondansetron 2mg). The patient was brought to the operating room where cardiopulmonary monitoring was instituted and surgical time-out was performed, confirming the correct operative eye and IOL power. Topical anesthesia was administered and ophthalmic povidone-iodine 5% was instilled into the conjunctival fornices. The sabina-ocular area was prepped with Betadine 10% solution and draped in the usual sterile fashion for intraocular surgery, including an aperture drape. A Tegaderm transparent film dressing was cut in half and used to cover the lashes and lid margins. Care was taken to sequester the lashes and lid margins under the Tegaderm dressing. A lid speculum was placed between the lids of the operative eye and the Osbaldo LuxOR Revalia operating microscope was maneuvered into position. Chely scissors were then used to make a conjunctival buttonhole approximately 6mm posterior to the limbus in the inferonasal quadrant. Blunt dissection was carried out to expose bare sclera, and a blunt-tipped sub-tenon?s anesthesia cannula was introduced and passed posteriorly along the globe where non- preserved plain lidocaine was injected into posterior sub-Tenon?s space. A sideport knife was used to make a paracentesis port. Intraocular phenylephrine/lidocaine was injected into the anterior chamber. The anterior chamber was filled with viscoelastic. A keratome knife was used to construct a 2-plane clear corneal tunnel extending 2.0mm into clear cornea. A flap was raised on the anterior capsule and capsulorhexis forceps were used to complete a continuous curvilinear capsulorhexis of 5.5 mm. Balanced salt solution was then used to perform cortical cleaving hydrodissection and nuclear hydrodelineation until the lens could be freely rotated within the capsular bag. The lens nucleus was then disassembled and removed within the capsular bag and iris plane using phacoemulsification. Residual cortical material was removed using the I/A handpiece. The posterior capsule was carefully polished to remove as much residual lens epithelial cells as safely possible. The capsular bag was then inflated and the anterior chamber deepened with cohesive viscoelastic. The lens implant described above was inserted into the capsular bag using the Colby and Arvin Simplicity pre- loaded injector. A Kuglen hook was used to dial the IOL into position. Residual viscoelastic was then removed first from posterior to the IOL, then from the anterior chamber using the I/A handpiece. The lens implant was noted to center nicely within the capsular bag. The incisions were stromally hydrated, and the anterior chamber was reformed using BSS. Then 0.5cc of moxifloxacin 1.0mg/ml were injected into the capsular bag and anterior chamber. The incisions were checked with a Weck spear and found to be secure. Several drops of ophthalmic povidone-iodine 5% were then applied to the eye followed by two drops of Imprimis combination prednisolone/moxifloxacin/nepafenac solution. The drapes were removed and a clear plastic protective eye shield was placed over the eye. The patient was then returned to Same Day Surgery in stable condition.
--- NOTE | 2022-11-30 07:55 | W.ANESPOSTOP ---
Postoperative Evaluation Date, Time and Location Date Performed: 11/30/22 Time Performed: 07:55 Patient Location: Day Surgery Unit Vital Signs Most Recent Imported Vital Signs: Most Recent Vital Signs Temp Pulse Resp BP Pulse Ox 37.0 C 77 16 127/76 100 11/30/22 06:16 11/30/22 06:16 11/30/22 06:16 11/30/22 06:16 11/30/22 06:16 Pain Score Most Recent Pain Score: Most Recent Pain Score Pain Level 0 11/30/22 06:16 Assessment Mental Status: Awake (Alert & Oriented to Patient Baseline) Airway and Respiratory Function: Patent airway with normal (patient baseline) respiratory exam Cardiovascular Function: Hemodynamically Stable Hydration Status: Adequately Hydrated Nausea & Vomiting: No Nausea or Vomiting Pain: Pt. Denies Any Pain Peripheral Nerve Block: Patient did not receive a nerve block
[2022-11-30 08:15] VITALS: BP 117/71; PULSE 80; RESP 16; TEMP 36.4; O2SAT 97
== END 2022-11-30 08:25 | disposition home or self-care (01) ==
PROVIDERS: PCP Family Medicine; Visit Provider Ophthalmology
PROC: (CPT 66984; principal; 2022-11-30 07:30)
DX: H25.041 Posterior subcapsular polar age-related cataract, right eye (principal); H25.11 Age-related nuclear cataract, right eye; K21.9 Gastro-esophageal reflux disease without esophagitis; Z98.42 Cataract extraction status, left eye
CPT/HCPCS: 66984; V2632

== ENCOUNTER 2022-12-22 01:41 | Outpatient (CLI) | payer MEDICARE, BC, SELFPAY ==
--- NOTE | 2022-12-22 09:15 | DI.MAMMO_ITS ---
Exam(s) MAMMO SCREENING EXAM: MAMMO SCREENING CLINICAL HISTORY: SCREENING, Z00.00,PREVENTIVE HEALTH CARE TECHNIQUE: Bilateral full field digital CC and MLO mammographic images were obtained with 3D tomosyn thesis and utilizing computer aided detection (CAD). COMPARISON: Available for comparison. FINDINGS: Masses/Architectural Distortion: There again seen postsurgical changes of a prior right breast biopsy . No suspicious nodules are seen. No suspicious areas of architectural distortion are present. Microcalcifications: No suspicious pleomorphic-type are seen. Skin Thickening/Nipple Retraction: None. IMPRESSION: 1. No significant interval change with no specific features of malignancy noted. 2. Unless there is more urgent need, screening mammography is recommended, as per [employer] guidelines. BI-RADS Category 2 - Benign Findings Breast Density - Category C - Heterogeneously dense Breast density category C or D implies that the patient has dense breast tissue. Dense breast tissue is very common and is not abnormal but dense breast tissue can make it harder to find cancer on a ma mmogram. Also, dense breast tissue may increase their breast cancer risk. This information about the result of the mammogram report was provided to the patient to raise their awareness. Use this report when you speak with the patient about their risks for breast cancer, which includes their family hist ory. At that time, you may recommend for more screening tests (Ultrasound or MRI) as they might be us eful based on their risk. A negative radiographic report should not delay biopsy if a dominant or clinically suspicious mass is present. Up to ten percent of cancers are not identified on mammography. A negative report may reinforce clinical impression. Adenosis and dense breasts may obscure an underlying neoplasm. False positive reports average 6 to 10%. Patient will receive a letter notifying them of these results.
== END 2022-12-22 02:01 ==
LOC: DI 01:41
PROVIDERS: PCP Family Medicine; Visit Provider Family Medicine
DX: Z12.31 Encounter for screening mammogram for malignant neoplasm of breast (principal)
CPT/HCPCS: 77063; 77067

== ENCOUNTER → 2023-07-28 08:54 | Outpatient (BNVA) | payer MEDICARE, BC, SELFPAY | PROVIDERS: PCP Family Medicine; Referring Provider Family Medicine; Visit Provider Surgery | DX: Z12.11 Encounter for screening for malignant neoplasm of colon (principal); Z86.010 Personal history of colon polyps ==

== ENCOUNTER 2023-08-05 05:50 | Day surgery (SDC) | payer MEDICARE, BC, SELFPAY ==
--- NOTE | 2023-08-04 21:21 | W.PM.DSUDISC ---
Date of service: 08/05/23 Time of Service: 08:06 Discharge Plan Disposition Patient Disposition: Home Condition: Good Discharge Details Reason For Visit: screening colonoscopy Attending Provider: Syd Torrez Primary Care Provider: Asad Xie Home Meds and New Rx's Prescriptions: Continued cholecalciferol (vitamin D3) 25 mcg (1,000 unit) capsule 25 mcg PO DAILY cranberry 400 MG capsule 1 cap PO DIRECTED omeprazole 20 MG capsule,delayed release(DR/EC) 20 mg PO DAILY acidophilus-pectin, citrus [Acidophilus Probiotic] 1 EACH capsule 0 cap PO DIRECTED calcium 600 mg Capsule 600 mg PO DAILY Discontinued polyethylene glycol 3350 17 gram/dose powder 238 g PO ONCE Qty: 238 0RF Rx Instructions: take per colonoscopy instructions Discharge Instructions Instructions: Diverticulosis (GEN), Colorectal Polyps (GEN), Diverticulitis Diet (GEN) Additional Instructions: Joya, we were able to complete your colonoscopy today without any issues. Your prep was excellent. I could see everything just fine. I did find 1 small polyp, which I removed completely. Incidentally, you also have just a tiny bit of diverticulosis. Diverticula are little weak spots in the colon wall that typically accumulate as we get older. I have attached a little bit of information here regarding colon and rectal polyps, as well as typical approaches for diverticular problems. All things considered, I do not think you need to do anything different here. My general advice is to make sure that you have plenty of fiber in your diet, and to avoid any symptoms of constipation or straining. Once I have the results of the polyp analysis, I will be in touch with my recommendations for your next colonoscopy. 1. If tolerated, consume a soft, low fiber diet for 1-2 days. 2[address] Do not drive, drink alcohol, operate machinery, make critical decisions, or do activities that require coordination or balance for 24 hours. 3. Because air was put into your colon during the procedure, expelling air from your rectum (passing gas or farting) is normal. 4. You may not have a bowel movement for 1-3 days because of the colonoscopy prep. This is normal. 5. Go directly to the emergency room if you notice any of the following: Develop chills (warm to touch), or if you have a thermometer and your temperature is above 101 Difficulty breathing or difficultly swallowing Persistent vomiting Severe abdominal pain, other than gas cramps Severe chest pain Black, tarry stools Any bleeding ? exceeding one tablespoon 6. Call your physician if the site where your intravenous was started becomes red, swollen, painful, and warm to touch. 7. Your physician has reviewed your pre-procedure medications. Please continue to take those medications as previously ordered. You will be given specific information/education regarding any changes to your medications before leaving. Activity:: Activity as Tolerated Diet:: As Tolerated Discharge Orders Discharge Orders: Discharge Order (Routine); Ordered 08/04/23 Ordered By: Syd Torrez DS: Diagnosis Discharge Diagnosis (1) Screen for colon cancer: Status: Acute Asessment and Plan: Follow-up on polypectomy results
--- NOTE | 2023-08-04 21:22 | W.COLOREPORT ---
Date of service: 08/05/23 Time of Service: 08:07 Colonoscopy Report Date of procedure: 08/05/23 Pre-op diagnosis general: screening colonoscopy Post-op diagnosis procedure note: other (Diverticulosis, colon polyp) Procedure: Colonoscopy with polypectomy Surgeon: Syd Torrez Anesthesia Type: General:No Airway Estimated blood loss (mL): 5 Pathology: other (0.25 cm flat polyp around 120 cm) Complications: None Disposition: same day Indications: Joya is a 73 year old woman with a history of adenomatous polyps. She needs her next screening colonoscopy Prep: Miralax Procedure Start Time: 07:29 Procedure End Time: 07:54 Retraction Time: 13 Findings: Rare diverticulosis, 0.25 cm polyp at 120 cm from the anus Procedure Description: After the induction of anesthetic care, and with the patient in left lateral decubitus position, I began by performing an external anorectal exam.? Perineum and skin were normal, as was the anal verge.? There was no evidence of external hemorrhoids.? Next, I performed a digital rectal exam.? This was normal.? Next, I advanced a colonoscope into the rectal vault.? I performed retroflexion.? This appeared normal.? Using insufflation, I then advanced the colonoscope beyond the rectal folds and into the sigmoid colon before advancing towards the cecum.? The quality of the prep was excellent.? The scope was noted to be in the cecum by identification of the ileocecal valve and appendiceal orifice.? I then began withdrawing the colonoscope using repeated irrigation as necessary for full evaluation of the colonic mucosa. Around 120 cm from the anus, within the ascending colon was a 0.25 cm flat polyp. I was able to remove this with cold forceps with minimal bleeding. Within the sigmoid colon, there were just a few diverticula. Once the scope was withdrawn to the level of the rectum, great care was taken to examine portions of the rectal folds.? Finally, the scope was withdrawn and the patient was brought to the same-day surgery recovery unit as the anesthetic wore off. ?The findings and instructions were shared with the patient prior to discharge. Outlook Bowel Prep Outlook Bowel Prep Right Colon: 3 Left Colon: 3 Transverse Colon: 3 Total Score: 9
[2023-08-05 06:32] VITALS: BP 151/84; PULSE 83; RESP 16; TEMP 36.6; O2SAT 100
[2023-08-05] MEDS: Lactated Ringers 1,000 ML 80 ML IV (06:39)
--- NOTE | 2023-08-05 07:10 | W.ANESPRE ---
General Info Date of Service Date Performed: 08/05/23 Height: 5 ft 4 in Weight: 68.9 kg Body Mass Index (BMI): 26.0 Surgical Procedure: Operation Date: 08/05/23 07:35 Proposed Procedure Side Surgeon diomedes Torrez MD Meds Allergies and Home Medications Allergies Allergy/AdvReac Type Severity Reaction Status Date / Time alendronate sodium AdvReac Intermediate N/V Unverified 08/05/23 06:41 [From Fosamax] Sulfa (Sulfonamide AdvReac Unverified 08/05/23 06:41 Antibiotics) Home Medication Medication Instructions Recorded acidophilus 100 million 0 cap PO DIRECTED 06/07/13 cell-pectin, citrus 10 mg capsule (Acidophilus Probiotic) cranberry 400 mg capsule 1 cap PO DIRECTED 06/07/13 omeprazole 20 mg capsule,delayed 20 mg PO DAILY 06/07/13 release calcium 600 mg capsule 600 mg PO DAILY 11/13/22 cholecalciferol (vitamin D3) 25 25 mcg PO DAILY 06/22/23 mcg (1,000 unit) capsule Current Visit Medications: Current Medications Generic Name Dose Route Start Last Admin Trade Name Freq PRN Reason Stop Dose Admin Hyoscyamine Sulfate 0.125 mg 08/04/23 21:24 Hyoscyamine 0.125 Mg Sl/Oral/Chew SL 09/03/23 21:23 DIRECTED PRN Ringer's Solution 1,000 mls @ 80 mls/hr 08/05/23 06:00 08/05/23 06:39 IV 08/05/23 23:59 80 mls/hr INFUSION EMILEE Administration IV Miscellaneous Supplies 1 each 08/05/23 06:00 Iv Access IV 08/05/23 23:59 DIRECTED EMILEE Ondansetron HCl 4 mg 08/04/23 21:24 Ondansetron 4 Mg/2 Ml Vial IVP 09/03/23 21:23 Q4H PRN PRN Nausea / Vomiting Sodium Chloride 0 ml 08/05/23 06:00 Normal Saline Flush 10 Ml Syr IV 08/05/23 23:59 PRN PRN Sodium Chloride 0 ml 08/05/23 06:00 Normal Saline 10 Ml Vial IJ 08/05/23 23:59 DIRECTED PRN Sterile Water 0 ml 08/05/23 06:00 Water,Injection,Sterile 10 Ml Vial IJ 08/05/23 23:59 DIRECTED PRN PFSH Active Problems Active Problems: Problem Status Onset Code Screen for colon cancer Z12.11 Atrophic vaginitis N95.2 Posterior subcapsular age-related cataract, 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 Nuclear age-related cataract, right eye H25.11 Urethral caruncle 10/01/17 N36.2 Gastroesophageal reflux disease without esophagitis 10/01/17 K21.9 Frequent UTI 10/01/17 N39.0 Cervical high risk HPV (human papillomavirus) test positive ~06/15/18 R87.810 Cystocele History of colposcopy ~09/19/19 Z98.890 Nuclear age-related cataract, left eye H25.12 Posterior subcapsular age-related cataract of left eye H25.042 Medical History Medical History Hx of Lyme disease GERD (gastroesophageal reflux disease) History of tobacco use Hematuria Prolapse of female genital organs Surgical History Surgical History H/O cataract removal with insertion of prosthetic lens History of anterior colporrhaphy 2018. [facility] Ligation of fallopian tube (~1982) [facility] Biopsy of breast (~1995) Benign Tobacco Smoking/Tobacco Use Status: Former Tobacco Use Alcohol Alcohol Intake: current Alcohol intake frequency: 0-2 drinks per day Alcohol type: wine and hard liquor Substance Use Substance use: Never Substance use type: does not use Prental History History 2 Para Hx # Term Pregnancies 2 Multiple births Hx # Pregnancies Ectopic pregnancies AB induced Hx Number of Living Children AB spontaneous Vital Signs and Lab Results Vital Signs Most Recent Vital Signs in EMR: Most Recent Vital Signs Temp Pulse Resp BP Pulse Ox 36.6 C 83 16 151/84 H 100 08/05/23 06:32 08/05/23 06:32 08/05/23 06:32 08/05/23 06:32 08/05/23 06:32 Lab Results Blood Type / Crossmatch: No Data to Display Complete Blood Count: No Data to Display Complete Metabolic Panel: No Data to Display Liver Function Panel: No Data to Display Coagulation Panel: No Data to Display Cardiac Panel: No Data to Display Arterial Blood Gas: No Data to Display Venous Blood Gas: No Data to Display Pancreas Panel: No Data to Display Thyroid Panel: No Data to Display Infectious Disease: No Data to Display Blood Cultures: No Data to Display Toxicology Panel: No Data to Display Anesthesia Assessment and Plan Anesthesia History Personal History: No History of Anesthesia Complications Family History: No Family History of Anesthesia Complications Exercise Tolerance Exercise Tolerance: Metabolic Equivalents>4 Pertinent Negatives Pertinent Negatives: No Symptoms of GERD (Rx treatment) Cardiac & Pulmonary Exam Cardiac Exam: Normal S1/S2 Heart Sounds Pulmonary Exam: Clear Bilateral Breath Sounds Implantable Cardiac Device Does patient have a Pacemaker or an ICD?: No Airway Exam Known Difficult Airway: No Mallampati Class: 2 Mouth Opening: Normal (> 3cm) Thyromental Distance: Greater than 3 cm Neck Range of Motion: Full ROM Neck Circumference: Normal Teeth Condition: Normal Dentition ASA Classification ASA Score: ASA 2 Emergency Case?: No NPO Status NPO Status: NPO Clears >2 hours, Solids >8 hours Anesthesia Plan Resuscitation Status: Full Code Anesthesia Technique: General Anesthesia Airway Planned: Natural Airway Monitors Used: Standard Monitors
[2023-08-05 07:11] VITALS: BMI 26.0
--- NOTE | 2023-08-05 07:44 | BOWEL_PTH ---
PATIENT: Joya Manrique LOC: [facility] U#:[id number] AGE/SX: 73/F ROOM: RE08/05/[address]: Syd Torrez MD : [id number] BED: DIS: 08/05/2023 SPEC #: [id number] RECD: 08/05/23 12:06 STATUS: VISHNU RE #: [id number] ASHER: 08/05/23 07:[address]: Syd Torrez DEPT: Surgical Specimen RECD BY: Dorinda De La Vega ENTERED: 08/05/23 12:07 SP TYPE: Bowel OTHR DR: Asad Xie Tissues: 1 - BIOPSY BOWEL Procedures: GROSS AND MICRO LEVEL 4 Comments: [id number]
[2023-08-05 08:00] VITALS: BP 118/78; PULSE 78; RESP 16; TEMP 36.5; O2SAT 100
--- NOTE | 2023-08-05 08:04 | W.ANESPOSTOP ---
Postoperative Evaluation Date, Time and Location Date Performed: 08/05/23 Time Performed: 08:04 Patient Location: Day Surgery Unit Vital Signs Most Recent Imported Vital Signs: Most Recent Vital Signs Temp Pulse Resp BP Pulse Ox 36.6 C 83 16 151/84 H 100 08/05/23 06:32 08/05/23 06:32 08/05/23 06:32 08/05/23 06:32 08/05/23 06:32 Pain Score Most Recent Pain Score: Most Recent Pain Score Pain Level 0 08/05/23 06:32 Assessment Mental Status: Awake (Alert & Oriented to Patient Baseline) Airway and Respiratory Function: Patent airway with normal (patient baseline) respiratory exam Cardiovascular Function: Hemodynamically Stable Hydration Status: Adequately Hydrated Nausea & Vomiting: No Nausea or Vomiting Pain: Pt. Denies Any Pain Peripheral Nerve Block: Patient did not receive a nerve block
[2023-08-05 08:28] VITALS: BP 133/87; PULSE 67; RESP 16; TEMP 36.8; O2SAT 99
== END 2023-08-05 08:52 | disposition home or self-care (01) ==
LOC: SUR 05:50
PROVIDERS: PCP Family Medicine; Visit Provider Surgery
PROC: 0DJD8ZZ Inspection of Lower Intestinal Tract, Via Natural or Artificial Opening Endoscopic (ICD-10-PCS; CPT 45378; principal; 2023-08-05 07:30)
DX: Z12.11 Encounter for screening for malignant neoplasm of colon (principal); D12.3 Benign neoplasm of transverse colon; K57.30 Diverticulosis of large intestine without perforation or abscess without bleeding; Z86.010 Personal history of colon polyps
CPT/HCPCS: 45380; 88305; J2001; J2704

== ENCOUNTER → 2024-02-24 01:01 | Outpatient (CLI) | payer MEDICARE, BC, SELFPAY ==
--- NOTE | 2024-02-24 | DI.DEXA_ITS ---
Exam(s) XR DEXA BONE DENSITY W/WO SHAHLA EXAM: XR DEXA BONE DENSITY W/WO SHAHLA CLINICAL HISTORY: OSTEOPENIA, M85.88 TECHNIQUE: [email or web address] C densitometer analysis of left hip, lumbar spine and left forearm. Lat eral survey image of the thoracic and lumbar spine. COMPARISON: DX DEXA BONE DENSITY WITH SHAHLA from 07/14/2016 DEXA scan 2004 FINDINGS: Lateral view of the thoracic and lumbar spine shows no evidence of compression fractures. Bone mineral density measurements of the lumbar spine correspond to a total T-score of -0.9, in the normal range. This is not changed from prior exams. Bone mineral density measurements of the left hip correspond to a total T-score of -0.8. This repre sents a 7.0 percent decrease from 2016 and a 9.5 percent decrease from 2003.. The femoral neck T-sco re is -1.8, in the osteopenic range. Theleft forearm bone mineral density measurements correspond to a T-score of the distal 3rd of -1.9, in the osteopenic range. 2.9 percent decrease from 2015. The forearm was not analyzed in 2003.. IMPRESSION: Normal bone mineral density of the lumbar spine. Osteopenia of the hip and forearm.
--- NOTE | 2024-02-24 | DI.MAMMO_ITS ---
Exam(s) MAMMO SCREENING EXAM: MAMMO SCREENING CLINICAL HISTORY: SCREENING, Z12.31. TECHNIQUE: Bilateral full field digital CC and MLO mammographic images were obtained with 3D tomosyn thesis and utilizing computer aided detection (CAD). COMPARISON: Prior mammograms were reviewed. FINDINGS: The fibroglandular tissue pattern is again noted be moderately dense. There are no new spiculated masses nor malignant appearing microcalcification groups. There is no significant architectural distortion nor skin thickening-retraction. IMPRESSION: No radiographic evidence of malignancy. BI-RADS Category 1 - Negative Breast Density - Category C - Heterogeneously dense Breast density Category C or D implies that the patient has dense breast tissue. Dense breast tissue can make it harder to find cancer on a mammogram. Dense breast tissue is also associated with an incr eased risk of breast cancer. This information about the result of the mammogram report was provided to the patient to raise their awareness. Use this report when you speak with the patient about their risks for breast cancer, which includes their family history. At that time, you may recommend additional screening tests (Ultrasoun d or MRI) as these tests may add significant information. A negative radiographic report should not delay biopsy if a dominant or clinically suspicious mass is present. Up to ten percent of cancers are not identified on mammography. A negative report may reinforce clinical impression. Adenosis and dense breasts may obscure an underlying neoplasm. False positive reports average 6 to 10%. Patient will receive a letter notifying them of these results.
== END ==
PROVIDERS: PCP Family Medicine; Visit Provider Family Medicine
DX: M85.88 Other specified disorders of bone density and structure, other site (principal); Z12.31 Encounter for screening mammogram for malignant neoplasm of breast; R92.333 Mammographic heterogeneous density, bilateral breasts; M85.851 Other specified disorders of bone density and structure, right thigh; M85.832 Other specified disorders of bone density and structure, left forearm
CPT/HCPCS: 77063; 77067; 77080

== ENCOUNTER 2025-03-15 18:05 | Outpatient (REF) | payer MEDICARE, BC, SELFPAY ==
[2025-03-15 15:58] LABS: Anion Gap 7.7 mmol/L (3-11); BUN 17 mg/dL (7-18); CO2 30.3 mmol/L (21.0-32.0); Calcium 9.5 mg/dL (8.5-10.1); Calculated LDL 160 mg/dL (<100); Chloride 102 mmol/L (98-107); Cholesterol 254 mg/dL (<200); Estimated GFR 98.97 (mL/min/1.73m2); Glucose 108 mg/dL (74-106); HDL Cholesterol 61 mg/dL (>or=50); Potassium 4.0 mmol/L (3.5-5.1); Sodium 140 mmol/L (136-145); Triglyceride 165 mg/dL (<150); Vitamin D 25 Total 79 ng/mL (30-100)
== END 2025-03-15 18:06 | disposition home or self-care (01) ==
LOC: NCHCN 18:05
PROVIDERS: PCP Family Medicine; Visit Provider Family Medicine
DX: M85.80 Other specified disorders of bone density and structure, unspecified site (principal); Z13.220 Encounter for screening for lipoid disorders
CPT/HCPCS: 80048; 80061; 82306

== ENCOUNTER 2025-04-02 00:34 | Outpatient (CLI) | payer MEDICARE, BC, SELFPAY ==
--- NOTE | 2025-04-02 | DI.MAMMO_ITS ---
Exam(s) MAMMO SCREENING EXAM: MAMMO SCREENING CLINICAL HISTORY: SCREENING MAMMO Z12.31 TECHNIQUE: Bilateral full field digital CC and MLO mammographic images were obtained with 3D tomosynthesis and utilizing computer aided detection (CAD). COMPARISON: Comparison is made with prior examinations. FINDINGS: Masses/Architectural Distortion: No suspicious masses or areas of architectural distortion are present. Microcalcifications: No suspicious pleomorphic-type are seen. Skin Thickening/Nipple Retraction: None. IMPRESSION: 1. No significant interval change with no specific features of malignancy noted. 2. Unless there is more urgent need, screening mammography is recommended, as per [place] [employer] guidelines. BI-RADS Category 1 - Negative Breast Density - Category C - The breast are heterogeneously dense, which may obscure small masses. Breast density Category C or D implies that the patient has dense breast tissue. Dense breast tissue can make it harder to find cancer on a mammogram. Dense breast tissue is also associated with an increased risk of breast cancer. This information about the result of the mammogram report was provided to the patient to raise their awareness. Use this report when you speak with the patient about their risks for breast cancer, which includes their family history. At that time, you may recommend additional screening tests (Ultrasound or MRI) as these tests may add significant information. A negative radiographic report should not delay biopsy if a dominant or clinically suspicious mass is present. Up to ten percent of cancers are not identified on mammography. A negative report may reinforce clinical impression. Adenosis and dense breasts may obscure an underlying neoplasm. False positive reports average 6 to 10%. Patient will receive a letter notifying them of these results.
== END 2025-04-02 00:54 ==
PROVIDERS: PCP Family Medicine; Visit Provider Family Medicine
DX: Z12.31 Encounter for screening mammogram for malignant neoplasm of breast (principal)
CPT/HCPCS: 77063; 77067